=== PATIENT | female | born 1955 | race Caucasian/White ===

== ENCOUNTER 2017-04-16 12:22 | Emergency (ER) | payer MEDICAID ==
--- NOTE | 2017-04-16 12:58 | ED Physician Documentation ---
PD HPI CHEST PAIN - Stated complaint Stated Complaint: CHEST PX - Chief complaint Chief Complaint: Cardiac - History obtained from History obtained from: Patient - History of Present Illness Timing - onset: How many days ago (has been out of her usual pain meds for several days and hurting more diffusely, particularly legs and back. Having some chest pain too, more with movement. No dyspnea. Recently moved to [place] to live with daughter family. Able to get her other meds [place] state but not pain meds nor Xanax. Has appt with new Provider later this month ()) Timing - onset during: Light activity Timing - details: Gradual onset, Waxing and waning Quality: Aching Location: Substernal Improved by: Rest Worsened by: Movement, Palpation. No: Eating Associated symptoms: General Weakness. No: Shortness of air, Nausea, Vomiting, Feeling faint / dizzy Similar symptoms before: No diagnosis (fibromyalgia/ chronic pain in back) Review of Systems Constitutional: denies: Fever, Chills Nose: denies: Rhinorrhea / runny nose, Congestion Throat: denies: Sore throat Cardiac: reports: Chest pain / pressure. denies: Palpitations, Pedal edema, Calf pain Respiratory: denies: Dyspnea, Cough, Wheezing GI: denies: Abdominal Pain, Nausea, Vomiting, Diarrhea Skin: denies: Rash, Lesions Musculoskeletal: reports: Back pain, Extremity pain (diffuse chronic). denies: Neck pain Neurologic: reports: Generalized weakness. 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 HEENT: Tonsil/Adenoidectomy - Present Medications Home Medications: Ambulatory Orders Medication Instructions Recorded Confirmed Alprazolam [Xanax] 04/16/17 Alprazolam [Xanax] 1 mg PO BID PRN #25 tablet 04/16/17 Aspirin Chewable [St Moe 04/16/17 Aspirin] Dexamethasone [Decadron] 4 mg PO DAILY #5 tablet 04/16/17 HYDROcodone/ACET 10/325 [Blair 10 1 each PO Q6H PRN #25 tablet 04/16/17 mg/325 mg] HYDROcodone/ACET 10/325 [Blair 10 QID 04/16/17 mg/325 mg] Isosorbide Dinitrate 04/16/17 Levetiracetam [Keppra] 250 mg 04/16/17 Levothyroxine Sodium [Synthroid] 04/16/17 - Allergies Allergies/Adverse Reactions: Allergies Allergy/AdvReac Type Severity Reaction Status Date / Time ketorolac [From Toradol] Allergy Unknown Verified 04/16/17 12:31 Penicillins Allergy Rash Verified 04/16/17 12:30 tramadol Allergy Unknown Verified 04/16/17 12:31 - Social History Does the pt smoke?: No Smoking Status: Never smoker Does the pt drink ETOH?: No Does the pt have substance abuse?: Yes Substance Use and Type: Marijuana - Immunizations Immunizations: TDAP current <10years - POLST Patient has POLST: No PD ED PE NORMAL - Vitals Vital signs reviewed: Yes - General General: Alert and oriented X 3, Well developed/nourished - HEENT HEENT: Pharynx benign - Neck Neck: Supple, no meningeal sign, No adenopathy - Cardiac Cardiac: RRR, No murmur - Respiratory Respiratory: Clear bilaterally, Other (chestwall tenderness parasternal) - Abdomen Abdomen: Soft, Non tender - Back Back: No CVA TTP - Derm Derm: Normal color, Warm and dry - Extremities Extremities: No tenderness to palpate, Normal ROM s pain, No edema, No calf tenderness / cord - Neuro Neuro: Alert and oriented X 3, No motor deficit, Normal speech - Psych Psych: Normal mood, Normal affect Results - Vitals Vitals: Oxygen O2 Source Room air - EKG (time done) 12:27 Rate: Rate (enter#) (103) Rhythm: Sinus tachycardia [place]: Normal Intervals: Normal IN QRS: Normal Ischemia: Normal ST segments. No: ST elevation c/w ischemia, ST depression Compare to prior EKG: Old EKG unavailable - Labs Labs: Laboratory Tests 04/16/17 04/16/17 04/16/17 13:00 13:00 13:00 Sodium 138 Potassium 3.5 Chloride 102 Carbon Dioxide 24 Anion Gap 12.0 BUN 18 Creatinine 0.8 Estimated GFR (MDRD) 73 L Glucose 115 H Calcium 9.1 Magnesium 2.0 Total Bilirubin 0.4 AST 26 ALT 10 Alkaline Phosphatase 198 H Troponin I < 0.04 B-Natriuretic Peptide 61 Total Protein 7.6 Albumin 3.9 Globulin 3.7 Albumin/Globulin Ratio 1.1 Lipase 31 - Rads (name of study) chest Radiology: Prelim report reviewed, EMP read contemporaneously (no acute process) PD MEDICAL DECISION MAKING - ED course Complexity details: reviewed results (ECG, CXR and labs are okay. She is out of her usual medications (had gotten noncontrolled meds from her PMD [place] of state, but could not get her pain meds and Xanax). Has appt with local new PCP on . ), considered differential (seems musculoskeletal pains in legs and on chestwall. ), d/w patient Departure - Departure Disposition: Home, Self Care Clinical Impression: Chronic arthralgias of knees and hips Chest pain Qualifiers: Chest pain type: precordial pain Qualified Code(s): R07.2 - Precordial pain Condition: Stable Record reviewed to determine appropriate education?: Yes Instructions: ED Chest Pain Atypical Unkn Cause Prescriptions: Alprazolam [Xanax] 1 mg PO BID PRN #25 tablet PRN Reason: Anxiety Dexamethasone [Decadron] 4 mg PO DAILY #5 tablet HYDROcodone/ACET 10/325 [Blair 10 mg/325 mg] 1 each PO Q6H PRN #25 tablet PRN Reason: Pain Comments: Continue usual medications. Hydrocodone if needed for pain. Xanax if needed for sleep and anxiety. Follow-up with your new primary care appointment on the as planned. Discharge Date/Time: 04/16/17 15:02
[2017-04-16] MEDS ORDERED: NAPROXEN 250 MG TABLET PO STA (13:19)
[2017-04-16] MEDS ORDERED: HYDROcod/ACETAM 10 MG/325 MG TABLET PO STA (13:19)
[2017-04-16 13:36] LABS: ALBUMIN 3.9 g/dL (3.2-5.5); ALBUMIN/GLOBULIN RATIO 1.1 (1.0-2.2); BILIRUBIN,TOTAL 0.4 mg/dL (0.2-1.0); CALCIUM 9.1 mg/dL (8.5-10.3); CREATININE 0.8 mg/dL (0.4-1.0); TOTAL PROTEIN 7.6 g/dL (6.7-8.2)
--- NOTE | 2017-04-16 14:10 | XRAY Report ---
EXAM: CHEST RADIOGRAPHY EXAM DATE: 04/16/2017 01:51 PM. CLINICAL HISTORY: Chest pain left sided. COMPARISON: None. TECHNIQUE: 2 views. FINDINGS: Lungs/Pleura: No focal opacities evident. No pleural effusion. No pneumothorax. Normal volumes. Mediastinum: Heart and mediastinal contours are unremarkable. Other: Anterior thoracic endplate enthesophytes. IMPRESSION: No consolidation evident. [facility] Referring Provider Line: [phone] SITE ID: [id number]
--- NOTE | 2017-04-16 14:10 | XRAY Preliminary Report ---
Exam: XR CHEST 2 VIEW X-RAY IMPRESSION: No consolidation evident. [facility] SITE ID: [id number]
[2017-04-16 14:59] VITALS: BP 130/68
== END 2017-04-16 15:02 | disposition home or self-care (01) ==
LOC: ED 12:22
DX: R07.2 Precordial pain (principal); M25.562 Pain in left knee; M25.561 Pain in right knee; M25.552 Pain in left hip; M25.551 Pain in right hip; R00.0 Tachycardia, unspecified; E03.9 Hypothyroidism, unspecified; Z79.82 Long term (current) use of aspirin
CPT/HCPCS: 36415; 71046; 80053; 83690; 83735; 83880; 84484; 93005; 99283; 99284; A9270

== ENCOUNTER 2017-04-23 06:55 | Emergency (ER) | payer MEDICAID ==
[2017-04-23 07:05] VITALS: BP 160/89
--- NOTE | 2017-04-23 07:31 | ED Physician Documentation ---
PD HPI BACK PAIN - Stated complaint Stated Complaint: KNEE PX,BACK PX - Chief complaint Chief Complaint: Back Pain - History obtained from History obtained from: Patient - History of Present Illness Timing - onset: Chronic Timing - details: Waxing and waning Location: Lower Quality: Pain - Additional information Additional information: The patient is a 61-year-old female who has a history of chronic back and bilateral knee pain, who presents for refill of her daily pain medications. She recently moved here from [place] and does not have a local primary physician. She has a primary care appointment scheduled for May 05, 12 days from now. She denies any recent injury or significant worsening of her chronic pain. She denies fever, urinary incontinence, numbness or weakness. She normally takes [place] and Xanax, and took her last dose of remaining medication last night. Review of medical records reveals previous emergency department visit here one week ago for similar prescription. Review of Systems Constitutional: denies: Fever Nose: denies: Congestion Throat: denies: Sore throat Cardiac: denies: Chest pain / pressure Respiratory: denies: Dyspnea, Cough GI: denies: Abdominal Pain, Nausea, Vomiting : denies: Dysuria Skin: denies: Rash Musculoskeletal: reports: Back pain, Joint pain (Knees bilaterally.) Neurologic: denies: Focal weakness, Numbness, Headache PD PAST MEDICAL HISTORY - Past Medical History Cardiovascular: Congestive heart failure Respiratory: COPD Neuro: Seizure disorder Endocrine/Autoimmune: HyPOthyroidism HEENT: Other Psych: Depression, Anxiety Musculoskeletal: Fibromyalgia, Chronic back pain - Past Surgical History 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 HEENT: Tonsil/Adenoidectomy - Present Medications Home Medications: Ambulatory Orders Medication Instructions Recorded Confirmed Alprazolam [Xanax] 04/16/17 Alprazolam [Xanax] 1 mg PO BID PRN #25 tablet 04/16/17 Aspirin Chewable [St Moe 04/16/17 Aspirin] Dexamethasone [Decadron] 4 mg PO DAILY #5 tablet 04/16/17 HYDROcodone/ACET 10/325 [[place] 10 1 each PO Q6H PRN #25 tablet 04/16/17 mg/325 mg] HYDROcodone/ACET 10/325 [[place] 10 QID 04/16/17 mg/325 mg] Isosorbide Dinitrate 04/16/17 Levetiracetam [Keppra] 250 mg 04/16/17 Levothyroxine Sodium [Synthroid] 04/16/17 Alprazolam [Xanax] 1 mg PO BID #25 tablet 04/23/17 HYDROcod/ACETAM 5/325 [[place] 5/325] 1 - 2 ea PO Q6H PRN #25 tablet 04/23/17 Walker [Ultra-Light Rollator] 1 each MC ONCE #1 each 04/23/17 - Allergies Allergies/Adverse Reactions: Allergies Allergy/AdvReac Type Severity Reaction Status Date / Time ketorolac [From Toradol] Allergy Unknown Verified 04/23/17 07:04 Penicillins Allergy Rash Verified 04/23/17 07:04 tramadol Allergy Unknown Verified 04/23/17 07:04 - Social History Does the pt smoke?: No Smoking Status: Never smoker Does the pt drink ETOH?: No Does the pt have substance abuse?: Yes - Immunizations Immunizations: TDAP current <10years - POLST Patient has POLST: No PD ED PE NORMAL - Vitals Vital signs reviewed: Yes (hypertensive) - General General: Alert and oriented X 3, Other (Overweight) - HEENT HEENT: Atraumatic - Neck Neck: No bony TTP, No adenopathy - Cardiac Cardiac: RRR, No murmur - Respiratory Respiratory: No respiratory distress, Clear bilaterally - Abdomen Abdomen: Soft, Non tender - Back Back: No CVA TTP, No spinal TTP, Other (There is mild tenderness to palpation in the lower paralumbar musculature, right greater than left. No tenderness along the spinous processes.) - Derm Derm: No rash - Extremities Extremities: No calf tenderness / cord, Other (Straight leg raise test is negative bilaterally.) - Neuro Neuro: Alert and oriented X 3, No motor deficit, No sensory deficit Results - Vitals Vitals: Oxygen O2 Source Room air PD MEDICAL DECISION MAKING - ED course Complexity details: reviewed old records, reviewed results, re-evaluated patient , considered differential, d/w patient ED course: The patient's presentation is significant for chronic lower back and bilateral knee pain, out of medication. There is no clinical evidence to suggest epidural abscess, cauda equina syndrome, or acute traumatic injury. She is being discharged with prescriptions for Vicodin, 25 tablets, and Xanax, 25 tablets. In addition she is given prescription for a walker. I discussed with her the importance of following up at her scheduled primary care appointment, as well as discussed potentially worrisome signs or symptoms that should prompt reevaluation in the emergency department. Departure - Departure Disposition: 01 Home, Self Care Clinical Impression: Chronic arthralgias of knees and hips Back pain Qualifiers: Back pain location: low back pain Chronicity: unspecified Back pain laterality : bilateral Sciatica presence: without sciatica Qualified Code(s): M54.5 - Low back pain Condition: Stable Instructions: ED Chronic Pain Management Follow-Up: [facility] [Provider Group] Prescriptions: Alprazolam [Xanax] 1 mg PO BID #25 tablet HYDROcod/ACETAM 5/325 [[place]ale 5/325] 1 - 2 ea PO Q6H PRN #25 tablet PRN Reason: Pain Walker [Ultra-Light Rollator] 1 each MC ONCE #1 each Comments: Use a walker to help with stability when walking. Try to taper down on your use of Glendale and Xanax. Take no more than 1 tablet of Glendale twice daily, and no more than 1 tablet of Xanax twice daily. It would be best to take them at different times of the day. Follow up with your primary physician as scheduled. Return to the emergency department if increasing pain or otherwise worsening symptoms. Discharge Date/Time: 04/23/17 08:25
== END 2017-04-23 08:25 | disposition home or self-care (01) ==
LOC: ED 06:55
DX: Z76.0 Encounter for issue of repeat prescription (principal); M16.0 Bilateral primary osteoarthritis of hip; M17.0 Bilateral primary osteoarthritis of knee; M54.5 Low back pain; G89.29 Other chronic pain; I50.9 Heart failure, unspecified; J44.9 Chronic obstructive pulmonary disease, unspecified; G40.909 Epilepsy, unspecified, not intractable, without status epilepticus; E03.9 Hypothyroidism, unspecified; M79.7 Fibromyalgia
CPT/HCPCS: 99283

== ENCOUNTER 2017-05-11 08:00 | Outpatient (CLI) | payer MEDICAID ==
[2017-05-11 13:29] LABS: BASOPHILS # (AUTO) 0.1 10^3/uL (0.0-0.1); BASOPHILS % (AUTO) 0.9 %; EOSINOPHILS # (AUTO) 0.3 10^3/uL (0.0-0.7); EOSINOPHILS % (AUTO) 4.4 %; HGB - HEMOGLOBIN 11.2 g/dL (12.0-16.0); LYMPHOCYTES # (AUTO) 1.9 10^3/uL (1.5-3.5); LYMPHOCYTES % (AUTO) 31.7 %; MEAN CORPUSCULAR HEMOGLOBIN 31.4 pg (27.0-31.0); MEAN CORPUSCULAR HGB CONC 33.2 g/dL (32.0-36.0); MEAN CORPUSCULAR VOLUME 94.6 fL (81.0-99.0); MEAN PLATELET VOLUME 8.9 fL (7.9-10.8); MONOCYTES # (AUTO) 0.4 10^3/uL (0.0-1.0); MONOCYTES % (AUTO) 6.4 %; NEUTROPHILS # (AUTO) 3.3 10^3/uL (1.5-6.6); NEUTROPHILS % (AUTO) 56.6 %; PLT - PLATELET COUNT 320 10^3/uL (130-450); RED BLOOD COUNT 3.58 10^6/uL (4.20-5.40); RED CELL DISTRIBUTION WIDTH 15.1 % (12.0-15.0); WHITE BLOOD COUNT 5.9 x10^3/uL (4.8-10.8)
[2017-05-11 14:00] LABS: ALBUMIN 3.8 g/dL (3.2-5.5); ALBUMIN/GLOBULIN RATIO 1.1 (1.0-2.2); ALKALINE PHOSPHATASE 172 IU/L (42-121); ALT ALANINE AMINOTRANSFERASE 11 IU/L (10-60); AST ASPARTATE AMINOTRANSFERASE 21 IU/L (10-42); BILIRUBIN,TOTAL 0.6 mg/dL (0.2-1.0); BUN - BLOOD UREA NITROGEN 15 mg/dL (6-20); CALCIUM 8.8 mg/dL (8.5-10.3); CARBON DIOXIDE - CO2 26 mmol/L (21-32); CHLORIDE 106 mmol/L (101-111); CHOL/HDL RATIO 2.7 (<4.4); CHOLESTEROL 162 mg/dL; CREATININE 0.6 mg/dL (0.4-1.0); GFR - MDRD 102 (>89); GLUCOSE 86 mg/dL (70-100); HDL CHOLESTEROL 61 mg/dL; LDL CHOLESTEROL,CALCULATED 84 mg/dL; LDL/HDL RATIO 1.4 (<4.4); SODIUM 140 mmol/L (135-145); TOTAL PROTEIN 7.2 g/dL (6.7-8.2); VLDL CHOLESTEROL 17 mg/dL
== END 2017-05-11 08:01 | disposition home or self-care (01) ==
LOC: LAB.N 08:00
PROVIDERS: ATTEND Family Medicine
DX: E66.9 Obesity, unspecified (principal); G89.4 Chronic pain syndrome
CPT/HCPCS: 36415; 80050; 80061; 83721

== ENCOUNTER 2017-05-29 18:17 | Emergency (ER) | payer MEDICAID ==
[2017-05-29 18:49] VITALS: BP 136/96
--- NOTE | 2017-05-29 19:41 | ED Physician Documentation ---
History of Present Illness - Stated complaint Stated Complaint: KNEE PX - Chief complaint Chief Complaint: Ext Problem - History obtained from History obtained from: Patient - History of Present Illness Timing: Chronic Pain level max: 8 Pain level now: 7 Improved by: norco Worsened by: walking - Additonal information Additional information: patient is a 61 year old female with chronic knee pain. She is new to the area. states is out of her nornh. She has been seen here twice recently for same. Saw her PCP 1 and is being referred to pain management. Has been on Xanax and Bricelyn for approximately 5 years now. 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: 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/Adenoidectomy - Present Medications Home Medications: Ambulatory Orders Medication Instructions Recorded Confirmed Alprazolam [Xanax] 04/16/17 Aspirin Chewable [St Moe 04/16/17 Aspirin] Dexamethasone [Decadron] 4 mg PO DAILY #5 tablet 04/16/17 HYDROcodone/ACET 10/325 [Bricelyn 10 QID 04/16/17 mg/325 mg] Isosorbide Dinitrate 04/16/17 Levetiracetam [Keppra] 250 mg 04/16/17 Levothyroxine Sodium [Synthroid] 04/16/17 Alprazolam [Xanax] 1 mg PO BID #25 tablet 04/23/17 HYDROcod/ACETAM 5/325 [Bricelyn 5/325] 1 - 2 ea PO Q6H PRN #25 tablet 04/23/17 Walker [Ultra-Light Rollator] 1 each MC ONCE #1 each 04/23/17 Alprazolam [Xanax] 1 mg PO BID PRN #20 tablet 05/29/17 HYDROcodone/ACET 10/325 [Bricelyn 10 1 each PO Q6H PRN #20 tablet 03/17/18 mg/325 mg] - Allergies Allergies/Adverse Reactions: Allergies Allergy/AdvReac Type Severity Reaction Status Date / Time ketorolac [From Toradol] Allergy Unknown Verified 04/23/17 07:04 Penicillins Allergy Rash Verified 04/23/17 07:04 tramadol Allergy Unknown Verified 04/23/17 07:04 - Social History Does the pt smoke?: No Smoking Status: Never smoker Does the pt drink ETOH?: No Does the pt have substance abuse?: Yes - Immunizations Immunizations: TDAP current <10years - POLST Patient has POLST: No PD ED PE NORMAL - Vitals Vital signs reviewed: Yes - General General: Alert and oriented X 3, No acute distress - HEENT HEENT: Moist mucous membranes - Neck Neck: Supple, no meningeal sign - Cardiac Cardiac: RRR - Respiratory Respiratory: No respiratory distress, Clear bilaterally - Abdomen Abdomen: Soft, Non tender, Non distended - Back Back: No spinal TTP - Derm Derm: Warm and dry - Extremities Extremities: Other (B knees, no effusion. no bony tenderness. ) - Neuro Neuro: Alert and oriented X 3 - Psych Psych: Normal mood, Normal affect Results - Vitals Vitals: Vital Signs - 24 hr 05/29/17 18:47 Temperature 36.8 C Heart Rate 89 Respiratory 18 Rate Blood Pressure 136/96 H O2 Saturation 100 Oxygen O2 Source Room air PD MEDICAL DECISION MAKING - ED course Complexity details: reviewed old records, considered differential, d/w patient ED course: Patient is a 61-year-old female who is out of her pain medication and Xanax. Counseled regarding the need to slowly taper her Xanax and work out a pain medication plan with her doctor. It will likely take several months for her to get into a pain management clinic. Recommend that she obtain her records from [place] and take this to her primary care provider. Will prescribe a small amount of pain medication for her as this is a chronic ongoing issue. We did discuss that we will no longer refill any chronic pain medications for her from this emergency department. Patient counseled regarding signs and symptoms for which I believe and urgent re-evaluation would be necessary. Patient with good understanding of and agreement to plan and is comfortable going home at this time This document was made in part using voice recognition software. While efforts are made to proofread this document, sound alike and grammatical errors may occur. Departure - Departure Disposition: 01 Home, Self Care Clinical Impression: Chronic knee pain Qualifiers: Laterality: bilateral Qualified Code(s): M25.561 - Pain in right knee Condition: Good Instructions: ED Degenerative Joint Disease Follow-Up: Matt Finley MD [Primary Care Provider] - Within 1 week Prescriptions: Alprazolam [Xanax] 1 mg PO BID PRN #20 tablet PRN Reason: Anxiety HYDROcodone/ACET 10/325 [Bricelyn 10 mg/325 mg] 1 each PO Q6H PRN #20 tablet PRN Reason: Pain Comments: As we discussed, we will no longer be able to provide pain medications for you from the emergency department. These will need to be obtained from your primary care provider and/or a pain clinic. Do not drink alcohol or drive while on narcotic pain medicine. Note that many narcotic pain relievers also contain tylenol/acetaminophen. Please ensure that your total dose of acetaminophen from all sources does not exceed 3 grams (3000mg) per day. You may constipated on this medication, take a stool softener such as "Colace" twice a day while you are on it. Also recommend a [id number] laxative such as senna or MiraLAX any day that you do not have a bowel movement. If you received narcotic pain medication in the emergency department, do not drive or operate machinery for the next 24 hours. Discharge Date/Time: 05/29/17 20:18
== END 2017-05-29 20:18 | disposition home or self-care (01) ==
LOC: ED 18:17
DX: M25.561 Pain in right knee (principal); Z76.0 Encounter for issue of repeat prescription; I50.9 Heart failure, unspecified; J44.9 Chronic obstructive pulmonary disease, unspecified; E03.9 Hypothyroidism, unspecified; M79.7 Fibromyalgia; G40.909 Epilepsy, unspecified, not intractable, without status epilepticus; Z79.82 Long term (current) use of aspirin; Z79.899 Other long term (current) drug therapy
CPT/HCPCS: 99283

== ENCOUNTER 2017-12-24 09:54 | Outpatient (CLI) | payer MEDICAID ==
--- NOTE | 2018-01-05 10:21 | Mammography Report ---
Reason: SCREEN wTOMO Procedure Date: 12/24/2017 Accession Number: [id number] / [id number] Procedure: LUL[facility] - Screening Mammo w/Kong CPT Code: FULL RESULT: EXAM: Screening Mammo w/Kong DATE: 12/24/2017 11:02 AM CLINICAL HISTORY: SCREEN wTOMO TECHNIQUE: Bilateral CC and MLO breast views. COMPARISON: None FINDINGS: The breast parenchyma is extremely dense which may limit the sensitivity of mammography. There are there are benign-appearing lymph nodes. No dominant mass, architectural distortion, or concerning cluster of microcalcifications is seen. IMPRESSION: BI-RADS Category 2. Benign findings. Recommend annual screening mammogram STANDARD QUALIFYING STATEMENTS: 1. This examination was not reviewed with the aid of Computer-Aided Detection (CAD). 2. A negative or benign imaging report should not delay biopsy if clinically suspicious findings are present. Consider surgical consultation if warrented. More than 5% of cancers are not identified by imaging. 3. Dense breasts may obscure an underlying neoplasm. 4. This examination was reviewed with the aid of 3D breast imaging (tomosynthesis).
== END 2017-12-24 09:55 | disposition home or self-care (01) ==
LOC: DI 09:54
DX: Z12.31 Encounter for screening mammogram for malignant neoplasm of breast (principal)
CPT/HCPCS: 77063; 77067

== ENCOUNTER 2018-05-04 16:55 | Emergency (ER) | payer MEDICAID ==
[2018-05-04 18:02] LABS: BASOPHILS % (AUTO) 0.7 %; EOSINOPHILS # (AUTO) 0.1 10^3/uL (0.0-0.7); EOSINOPHILS % (AUTO) 1.7 %; HGB - HEMOGLOBIN 12.1 g/dL (12.0-16.0); LYMPHOCYTES # (AUTO) 0.5 10^3/uL (1.5-3.5); LYMPHOCYTES % (AUTO) 12.8 %; MEAN CORPUSCULAR HEMOGLOBIN 32.9 pg (27.0-31.0); MEAN CORPUSCULAR HGB CONC 32.7 g/dL (32.0-36.0); MEAN CORPUSCULAR VOLUME 100.5 fL (81.0-99.0); MEAN PLATELET VOLUME 7.5 fL (7.9-10.8); MONOCYTES # (AUTO) 0.4 10^3/uL (0.0-1.0); MONOCYTES % (AUTO) 10.1 %; NEUTROPHILS % (AUTO) 74.7 %; PLT - PLATELET COUNT 244 10^3/uL (130-450); RED BLOOD COUNT 3.67 10^6/uL (4.20-5.40); RED CELL DISTRIBUTION WIDTH 13.7 % (12.0-15.0); WHITE BLOOD COUNT 4.1 x10^3/uL (4.8-10.8)
[2018-05-04 18:13] LABS: ALBUMIN 3.6 g/dL (3.2-5.5); BILIRUBIN,TOTAL 0.3 mg/dL (0.2-1.0); CREATININE 0.8 mg/dL (0.4-1.0); TOTAL PROTEIN 7.1 g/dL (6.7-8.2)
[2018-05-04] MEDS ORDERED: HYDROcod/ACETAM 5/325 MG TABLET PO STA (18:29)
[2018-05-04] MEDS ORDERED: DOXYCYCLINE 100 MG TABLET PO STA (18:32)
[2018-05-04] MEDS ORDERED: predniSONE 20 MG TABLET PO STA (18:32)
[2018-05-04] MEDS ORDERED: IPRATROPIUM/ALBUTEROL 3 ML NEB INH STA (18:32)
--- NOTE | 2018-05-04 18:35 | ED Physician Documentation ---
PD HPI URI - Stated complaint Stated Complaint: SOA, CHEST PAIN - Chief complaint Chief Complaint: Resp - History obtained from History obtained from: Patient - History of Present Illness Timing - onset: Yesterday (This is a 62-year-old woman with history of recurrent pneumonia, otherwise no clear history of heart or lung disease but is somewhat point was told she might have congestive heart failure, although she has not had any problems with that since starting aspirin several years ago. She started to run fevers yesterday and has myalgias but they are prominent in the chest. 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 HEENT: Tonsil/Adenoidectomy - Present Medications Home Medications: Ambulatory Orders Medication Instructions Recorded Confirmed Alprazolam [Xanax] 04/16/17 Aspirin Chewable [[place] 04/16/17 Aspirin] Dexamethasone [Decadron] 4 mg PO DAILY #5 tablet 04/16/17 HYDROcodone/ACET 10/325 [[place] 10 QID 04/16/17 mg/325 mg] Isosorbide Dinitrate 04/16/17 Levetiracetam [Keppra] 250 mg 04/16/17 Levothyroxine Sodium [Synthroid] 04/16/17 Alprazolam [Xanax] 1 mg PO BID #25 tablet 04/23/17 HYDROcod/ACETAM 5/325 [[place] 5/325] 1 - 2 ea PO Q6H PRN #25 tablet 04/23/17 Walker [Ultra-Light Rollator] 1 each MC ONCE #1 each 04/23/17 Alprazolam [Xanax] 1 mg PO BID PRN #20 tablet 05/29/17 HYDROcodone/ACET 10/325 [[place] 10 1 each PO Q6H PRN #20 tablet 05/29/17 mg/325 mg] Albuterol Sulf [Ventolin Hfa 1 - 2 puffs INH Q4HR PRN #1 inhaler 05/04/18 Inhaler] Doxycycline Hyclate 100 mg PO BID #20 capsule 05/04/18 guaiFENesin/CODEINE [Robitussin AC] 5 - 10 ml PO Q6H PRN #120 ml 05/04/18 predniSONE [Deltasone] 60 mg PO DAILY 5 Days tablet 05/04/18 - Allergies Allergies/Adverse Reactions: Allergies Allergy/AdvReac Type Severity Reaction Status Date / Time ketorolac [From Toradol] Allergy Unknown Verified 05/04/18 17:02 Penicillins Allergy Rash Verified 05/04/18 17:02 tramadol Allergy Unknown Verified 05/04/18 17:02 - Social History Does the pt smoke?: No Smoking Status: Never smoker Does the pt drink ETOH?: No Does the pt have substance abuse?: Yes - Immunizations Immunizations: TDAP current <10years - POLST Patient has POLST: No PD ED PE NORMAL - Vitals Vital signs reviewed: Yes - General General: Alert and oriented X 3, No acute distress - HEENT HEENT: PERRL, EOMI - Neck Neck: Supple, no meningeal sign, No bony TTP - Cardiac Cardiac: RRR, No murmur - Respiratory Respiratory: No respiratory distress, Other (Mildly wheezy throughout with decent air motion) - Abdomen Abdomen: Soft, Non tender - Derm Derm: No rash - Extremities Extremities: No deformity, No tenderness to palpate - Neuro Neuro: Alert and oriented X 3, Normal speech Results - Vitals Vitals: Vital Signs - 24 hr 05/04/18 05/04/18 16:58 17:20 Temperature 38.0 C H 39.5 C H Heart Rate 103 H 96 Respiratory 14 14 Rate Blood Pressure 139/66 H 134/82 H O2 Saturation 100 100 Oxygen O2 Source Room air - Labs Labs: Laboratory Tests 05/04/18 05/04/18 05/04/18 17:42 17:52 17:52 WBC 4.1 L RBC 3.67 L Hgb 12.1 Hct 36.9 L MCV 100.5 H MCH 32.9 H MCHC 32.7 RDW 13.7 Plt Count 244 MPV 7.5 L Neut # (Auto) 3.0 Lymph # (Auto) 0.5 L [place] # (Auto) 0.4 Eos # (Auto) 0.1 Baso # (Auto) 0.0 Absolute Nucleated RBC 0.00 Nucleated RBC % 0.0 Sodium 138 Potassium 3.7 Chloride 104 Carbon Dioxide 23 Anion Gap 11.0 BUN 11 Creatinine 0.8 Estimated GFR (MDRD) 73 L Glucose 100 Lactic Acid Calcium 9.0 Total Bilirubin 0.3 AST 26 ALT 19 Alkaline Phosphatase 93 Troponin I Total Protein 7.1 Albumin 3.6 Globulin 3.5 Albumin/Globulin Ratio 1.0 Lipase 25 Influenza A (Rapid) Negative Influenza B (Rapid) Negative 05/04/18 05/04/18 17:52 17:52 WBC RBC Hgb Hct MCV MCH MCHC RDW Plt Count MPV Neut # (Auto) Lymph # (Auto) [place] # (Auto) Eos # (Auto) Baso # (Auto) Absolute Nucleated RBC Nucleated RBC % Sodium Potassium Chloride Carbon Dioxide Anion Gap BUN Creatinine Estimated GFR (MDRD) Glucose Lactic Acid 0.8 Calcium Total Bilirubin AST ALT Alkaline Phosphatase Troponin I < 0.04 Total Protein Albumin Globulin Albumin/Globulin Ratio Lipase Influenza A (Rapid) Influenza B (Rapid) PD MEDICAL DECISION MAKING - ED course ED course: This is a 62-year-old woman with a pretty high fever who presents with a flulike illness, productive cough and history of recurrent pneumonia. She has mild leukopenia, flu swab is negative, potentially false negative. Cardiac workup was negative. Departure - Departure Disposition: 01 Home, Self Care Clinical Impression: Bronchitis Condition: Good Record reviewed to determine appropriate education?: Yes Instructions: ED Bronchitis Asthmatic Prescriptions: Albuterol Sulf [Ventolin Hfa Inhaler] 1 - 2 puffs INH Q4HR PRN #1 inhaler PRN Reason: Shortness Of Air/Wheezing Doxycycline Hyclate 100 mg PO BID #20 capsule guaiFENesin/CODEINE [Robitussin AC] 5 - 10 ml PO Q6H PRN #120 ml PRN Reason: Cough predniSONE [Deltasone] 60 mg PO DAILY 5 Days tablet Comments: You can take Tylenol or aspirin as needed for the fever. Return for new or worsening symptoms. Follow-up with your doctor on Wednesday for recheck.
--- NOTE | 2018-05-04 18:48 | XRAY Report ---
Reason: dyspnea cp Procedure Date: 05/04/2018 Accession Number: [id number] / [id number] Procedure: XR - Chest 2 View X-Ray CPT Code: 66542 FULL RESULT: EXAM: CHEST RADIOGRAPHY EXAM DATE: 05/04/2018 05:56 PM. CLINICAL HISTORY: Dyspnea, chest pain COMPARISON: CHEST 2 VIEW 04/16/2017 1:34 PM. TECHNIQUE: 2 views. FINDINGS: Lungs/Pleura: No focal opacities evident. No pleural effusion. No pneumothorax. Normal volumes. Mediastinum: Cardiomegaly is accentuated by lordotic AP technique. Other: None. IMPRESSION: Detail limited by lordotic AP technique. No clear evidence of acute intrathoracic plain film abnormality. [facility]
[2018-05-04 19:32] VITALS: BP 123/67
== END 2018-05-04 19:32 | disposition home or self-care (01) ==
LOC: ED 16:55
DX: J40 Bronchitis, not specified as acute or chronic (principal); R50.9 Fever, unspecified; D72.819 Decreased white blood cell count, unspecified; E03.9 Hypothyroidism, unspecified; Z79.82 Long term (current) use of aspirin
CPT/HCPCS: 36415; 71046; 80053; 83605; 83690; 84484; 85025; 87040; 87275; 87276; 93005; 94640; 94664; 99283